=== PATIENT | female | born 1975 | race Caucasian/White ===

== ENCOUNTER 2018-03-11 08:57 | Emergency (ER) | payer BC ==
[2018-03-11 09:02] VITALS: BMI 52.4
[2018-03-11 09:03] VITALS: BP 128/72
--- NOTE | 2018-03-11 09:16 | DR.GENAD ---
HPI - PCP Primary Care Physician: LANA - Complaint/Symptoms Chief Complaint Doctors Comments: Patient presents with complaint of right lower extremity pain. She admits to a history of blood clot in the extremity and is on ASA 325 daily. The pain is right mid calf laterally. She denies dyspnea Chief Complaint:: PT. C/O PAIN TO RIGHT LOWER LEG. PT. STATES SHE THINKS SHE HAS A BLOOD CLOT. PT. HAS A HX. OF BLOOD CLOT TO LEFT LEG. - Source History Provided: Patient - Mode of Arrival Mode of Arrival: Ambulatory - Timing Onset of Chief Complaint: 03/09/18 PMH - PMH Past Medical History: Yes Past Medical History: Asthma, Diabetes, Dyslipidemia, GERD, Hypertension, Hypothyroidism Past Medical History Comment: DVT, VITAMIN D DEF., B12 DEFICIENCY, RLS Past Surgical History: Yes Surgical History: Cholecystectomy, Thyroidectomy Past Surgical History Comment: WISDOM TEETH, EYE SURGERY - Family History History of Family Medical Conditions: No - Social History Does patient currently use any type of tobacco product: No Have you used tobacco products in the last 12 months: No Type of Tobacco Use: None Does any household member use tobacco: No Alcohol Use: None Do you use any recreational Drugs:: No Lives With: Alone Lives Where: Home - infectious screening In the last 2 months have you had wt loss of >10#?: NO Have you had fever, night sweats or hemotysis?: No Have you traveled outside the country in the last 6 months?: No Isolation: Standard ROS - Review of Systems Eyes: No Symptoms Reported ENTM: No Symptoms Reported Respiratoy: No Symptoms Reported Cardiovascular: No Symptoms Reported Gastrointestinal/Abdominal: No Symptoms Reported Genitourinary: No Symptoms Reported Neurological: No Symptoms Reported Musculoskeletal: No Symptoms Reported Integumentary: No Symptoms Reported Hematologic/Lymphatic: No Symptoms Reported Endocrine: No Symptoms Reported Psychiatric: No Symptoms Reported All Other Systems: Reviewed and Negative PE - Vital Signs Vitals: Temperature 98.1 F Pulse Rate 68 Respiratory Rate 20 Blood Pressure 128/72 O2 Sat by Pulse Oximetry 97 - General Limitations: No Limitations General Appearance: Alert, In No Apparent Distress - Head Head Exam: Normal Inspection, Atraumatic - Eyes Eye exam: Normal Appearance, PERRL, EOMI - ENT ENT Exam: Normal Exam External Ear Exam: Normal External Inspection TM/Canal Exam: Bilateral Normal Nose Exam: Normal Nose Exam Mouth Exam: Normal Inspection Throat Exam: Normal Inspection - Neck Neck Exam: Normal Inspection - Chest Chest Inspection: Normal Inspection - Respiratory Respiratory Exam: Normal Lung Sounds Bilat Respiratory Exam: Bilateral Clear to Auscultation - Cardiovascular Cardiovascular Exam: Regular Rate, Normal Rhythm - Abdominal Exam Abdominal Exam: Normal Inspection, Normal Bowel Sounds Abdominal Tenderness: negative: RUQ, RLQ, LUQ, LLQ, Epigastrium, Suprapubic, Diffuse, Mild, Moderate, Severe, Other - Extremities Extremities Exam: Normal Inspection, Normal Capillary Refill, Other (right calf circumferance 17 1/4;left 16 3/4). negative: Edema, Calf Tenderness (right mid medial) - Back Back Exam: Normal Inspection, Full ROM - Neurologic Neurological Exam: Alert, Oriented X3, CN II-XII Intact - Psychiatric Psychiatric Exam: Normal Affect, Normal Mood - Skin Skin Exam: Warm, Dry Course - Reevaluation 1st: Unchanged ROR - Labs Reviewed Laboratory Results Reviewed?: Yes (D Dimer 286) Result Diagrams: 03/11/18 09:40 03/11/18 09:40 Laboratory: WBC 10.7 X10^3/uL (3.6-10.0) H 03/11/18 09:40 RBC 5.03 X10^6/uL (3.5-5.4) 03/11/18 09:40 Hgb 13.1 g/dL (12.0-16.0) 03/11/18 09:40 Hct 39.4 % (36.0-47.0) 03/11/18 09:40 MCV 78.4 fL (80.0-100.0) L 03/11/18 09:40 MCH 26.1 pg (27.0-34.0) L 03/11/18 09:40 MCHC 33.2 g/dL (33.0-35.0) 03/11/18 09:40 RDW 14.8 % (11.6-16.5) 03/11/18 09:40 Plt Count 428 X10^3/uL (150.0-450.0) 03/11/18 09:40 MPV 8.0 fL (7.4-11.0) 03/11/18 09:40 Neut % (Auto) 68.7 % (42.0-75.0) 03/11/18 09:40 Lymph % (Auto) 22.5 % (21.0-51.0) 03/11/18 09:40 Starr % (Auto) 6.1 % (0.0-13.0) 03/11/18 09:40 Eos % (Auto) 1.9 % (0.9-2.9) 03/11/18 09:40 Baso % (Auto) 0.8 % (0.2-1.0) 03/11/18 09:40 Neut # (Auto) 7.4 x10^3/uL (2.2-4.8) H 03/11/18 09:40 Lymph # (Auto) 2.4 X10^3/uL (1.3-2.9) 03/11/18 09:40 Starr # (Auto) 0.6 x10^3/uL (0.3-0.8) 03/11/18 09:40 Eos # (Auto) 0.2 x10^3/uL (0.0-0.2) 03/11/18 09:40 Baso # (Auto) 0.1 X10^3/uL (0.0-0.1) 03/11/18 09:40 Absolute Nucleated RBC 0.0 /100WBC 03/11/18 09:40 D-Dimer 286 ng/mL (0-400) 03/11/18 09:40 Sodium 138 mmol/L (136-145) 03/11/18 09:40 Corrected Sodium 139 mmol/L (136-145) 03/11/18 09:40 Potassium 4.3 mmol/L (3.5-5.1) 03/11/18 09:40 Chloride 102 mmol/L (98-107) 03/11/18 09:40 Carbon Dioxide 27.5 mmol/L (21-32) 03/11/18 09:40 BUN 11 mg/dL (7-18) 03/11/18 09:40 Creatinine 0.82 mg/dL (0.55-1.02) 03/11/18 09:40 Est GFR (MDRD) Af Amer > 60 (>60) 03/11/18 09:40 Est GFR (MDRD) Non-Af > 60 (>60) 03/11/18 09:40 Glucose 133 mg/dL (65-99) H 03/11/18 09:40 Calcium 8.6 mg/dL (8.5-10.1) 03/11/18 09:40 Corrected Calcium TNP 03/11/18 09:40 Total Bilirubin 0.40 mg/dL (0.2-1.0) 03/11/18 09:40 AST 24 Units/L (15-37) 03/11/18 09:40 ALT 32 Units/L (12-78) 03/11/18 09:40 Alkaline Phosphatase 50 Units/L (46-116) 03/11/18 09:40 Total Protein 7.3 g/dL (6.4-8.2) 03/11/18 09:40 Albumin 3.4 g/dL (3.4-5.0) 03/11/18 09:40 Globulin 3.9 g/dL (2.5-4.5) 03/11/18 09:40 Albumin/Globulin Ratio 0.9 Ratio (1.1-2.1) L 03/11/18 09:40 - Diagnosis Discharge Problem: Pain of right anterior lower extremity - Discharge Plan Condition: Stable - Follow ups/Referrals Follow ups/Referrals: NFD,None [Primary Care Provider] - 3 days - Instructions
[2018-03-11 09:54] LABS: BASOPHILS # (AUTO) 0.1 X10^3/uL (0.0-0.1); BASOPHILS % (AUTO) 0.8 % (0.2-1.0); EOSINOPHILS # (AUTO) 0.2 x10^3/uL (0.0-0.2); EOSINOPHILS % (AUTO) 1.9 % (0.9-2.9); HEMATOCRIT 39.4 % (36.0-47.0); HEMOGLOBIN 13.1 g/dL (12.0-16.0); LYMPHOCYTES # (AUTO) 2.4 X10^3/uL (1.3-2.9); LYMPHOCYTES % (AUTO) 22.5 % (21.0-51.0); MEAN CORPUSCULAR HEMOGLOBIN 26.1 pg (27.0-34.0); MEAN CORPUSCULAR HGB CONC 33.2 g/dL (33.0-35.0); MEAN CORPUSCULAR VOLUME 78.4 fL (80.0-100.0); MONOCYTES # (AUTO) 0.6 x10^3/uL (0.3-0.8); MONOCYTES % (AUTO) 6.1 % (0.0-13.0); NEUTROPHILS # (AUTO) 7.4 x10^3/uL (2.2-4.8); NEUTROPHILS % (AUTO) 68.7 % (42.0-75.0); PLATELET COUNT 428 X10^3/uL (150.0-450.0); RED BLOOD COUNT 5.03 X10^6/uL (3.5-5.4); RED CELL DISTRIBUTION WIDTH 14.8 % (11.6-16.5); WHITE BLOOD COUNT 10.7 X10^3/uL (3.6-10.0)
[2018-03-11 10:02] LABS: ALANINE AMINOTRANSFERASE 32 Units/L (12-78); ALBUMIN 3.4 g/dL (3.4-5.0); ALKALINE PHOSPHATASE 50 Units/L (46-116); ASPARTATE AMINO TRANSFERASE 24 Units/L (15-37); BLOOD UREA NITROGEN 11 mg/dL (7-18); CALCIUM 8.6 mg/dL (8.5-10.1); CARBON DIOXIDE 27.5 mmol/L (21-32); CHLORIDE 102 mmol/L (98-107); COR NA(FOR HYPERGLY) 139 mmol/L (136-145); CREATININE 0.82 mg/dL (0.55-1.02); SODIUM 138 mmol/L (136-145); TOTAL PROTEIN 7.3 g/dL (6.4-8.2); eGFR BLACK RACES > 60 (>60); eGFR NON BLACK RACES > 60 (>60)
== END 2018-03-11 11:02 | disposition home or self-care (01) ==
LOC: ER 09:07
DX: M79.661 Pain in right lower leg (principal)
CPT/HCPCS: 36415; 80053; 85025; 85378; 99282